=== PATIENT | female | born 1995 | race Caucasian/White ===

== ENCOUNTER 2018-07-08 10:05 | Emergency (ER) | payer MEDICAID, OTHER ==
[2018-07-08 10:06] VITALS: BMI 21.9
[2018-07-08 10:42] VITALS: BP 97/60; PULSE 55; RESP 15; TEMP 97.9; O2SAT 100
--- NOTE | 2018-07-08 10:51 | ED PDOC ---
Arrival/HPI - General Chief Complaint: Abnormal Skin Integrity Time Seen by Provider: 07/08/18 10:48 Historian: Patient - History of Present Illness Narrative History of Present Illness (Text): 07/08/18 10:48 22 y/o female, no significant pmh, nkda, c/o rt. inner thigh painful lump x 2 days. Aching pain, associated with a single lump swelling, no fever or chills, no headache or night sweat, no rash, no numbness or tingling, no diarrhea, no other medical or psychological complaints, no vaginal lesion or pain. Past Medical History - Provider Review Nursing Documentation Reviewed: Yes - Psychiatric Hx Psychophysiologic Disorder: No Hx Substance Use: No - Anesthesia Hx Anesthesia: No Family/Social History - Physician Review Nursing Documentation Reviewed: Yes Family/Social History: Unknown Family HX Smoking Status: Never Smoked Hx Alcohol Use: No Hx Substance Use: No Allergies/Home Meds Allergies/Adverse Reactions: Allergies No Known Allergies Allergy (Verified 07/08/18 10:37) Review of Systems - Review of Systems Constitutional: absent: Fatigue, Fevers Eyes: absent: Vision Changes ENT: absent: Hearing Changes Respiratory: absent: SOB, Cough Cardiovascular: absent: Chest Pain Gastrointestinal: absent: Abdominal Pain, Nausea, Vomiting Skin: Skin Lesions, Abscess. absent: Rash, Pruritis, Laceration, Ulcer, Cellulitis Neurological: absent: Headache, Dizziness Psychiatric: absent: Anxiety, Depression, Suicidal Ideation Physical Exam Vital Signs Reviewed: Yes Vital Signs Temp Pulse Resp BP Pulse Ox 07/08/18 10:37 97.9 F 55 L 15 97/60 L 100 Temperature: Afebrile Pulse: Bradycardic Respiratory Rate: Normal Appearance: Positive for: Well-Appearing, Non-Toxic, Comfortable Pain Distress: Mild Mental Status: Positive for: Alert and Oriented X 3 - Systems Exam Head: Present: Atraumatic, Normocephalic Pupils: Present: PERRL Extroacular Muscles: Present: EOMI Conjunctiva: Present: Normal Mouth: Present: Moist Mucous Membranes Neck: Present: Normal Range of Motion Respiratory/Chest: Present: Clear to Auscultation, Good Air Exchange. No: Respiratory Distress, Accessory Muscle Use Cardiovascular: Present: Regular Rate and Rhythm, Normal S1, S2. No: Murmurs Abdomen: No: Tenderness, Distention, Peritoneal Signs Back: Present: Normal Inspection Upper Extremity: Present: Normal Inspection. No: Cyanosis, Edema Lower Extremity: Present: Normal Inspection. No: Edema Neurological: Present: GCS=15, CN II-XII Intact, Speech Normal Skin: Present: Warm, Dry, Rashes (Rt. inner thigh region visible approx. 1.5cmx0.5cm diameter with mild fluctuant abscess noted, no cellulitis, no streaking, FROM without limitation, sensation intact, motor 5/5, +DPPT pulses, capillary refill< 2 seconds, neurovascular intact. ), Normal Color Psychiatric: Present: Alert, Oriented x 3, Normal Insight, Normal Concentration Medical Decision Making ED Course and Treatment: 07/08/18 10:51 -urine hcg 07/08/18 11:22 -Urine hcg is negative. Procedure: Incision & Drainage Performed by the emergency provider Indication: Abscess Location: rt. inner thigh fold Preparation: The area was prepped and draped in the usual sterile fashion and was cleansed with NS 1000cc, clean with betadine and alcohol swab. Local infiltration of Lidocaine 1% without Epi 0.5cc was used for anesthesia. Procedure: The most fluctuant portion of the abscess was incised with a #11 scalpel 0.5cm. Approximately 1 mL of purulant asbcess drainge was obtained. The abscess is too superficial for packing. A dressing was applied by me with bacitracin and gauze dressing. Post-Procedure: On exam the abscess is notably less fluctuant. The patient tolerated the procedure well, and there were no complications. 07/08/18 12:13 -Discharge home with clindamycin, motrin, keep the dressing dry and clean for 2 days and return to the ER for wound check or see your own pmd/general surgeon, return to the ER for any new or worsening signs or symptoms. - PA / BUSHEL GIRL / Resident Statement MD/DO has reviewed & agrees with the documentation as recorded. Disposition/Present on Arrival - Present on Arrival Any Indicators Present on Arrival: No History of DVT/PE: No History of Uncontrolled Diabetes: No Urinary Catheter: No History of Decub. Ulcer: No History Surgical Site Infection Following: None - Disposition Have Diagnosis and Disposition been Completed?: Yes Diagnosis: Abscess Disposition: HOME/ ROUTINE Disposition Time: 12:16 Patient Plan: Discharge Condition: IMPROVED Additional Instructions: -Discharge home with clindamycin, motrin, keep the dressing dry and clean for 2 days and return to the ER for wound check or see your own pmd/general surgeon, return to the ER for any new or worsening signs or symptoms. Prescriptions: Clindamycin [Cleocin] 300 mg PO TID #21 cap Ibuprofen [Motrin Tab] 600 mg PO QID PRN #30 tab PRN Reason: Other Referrals: Dale Francicso MD [Medical Doctor] - Follow up with primary [facility] [place] - Follow up with primary Forms: [facility] [employer] ([place]), WORK NOTE
== END 2018-07-08 12:22 | disposition home or self-care (01) ==
LOC: ED 10:05
DX: L02.415 Cutaneous abscess of right lower limb (principal)

== ENCOUNTER 2018-07-10 14:33 | Emergency (ER) | payer MEDICAID ==
[2018-07-10 14:34] VITALS: BMI 21.9
[2018-07-10 15:31] VITALS: RESP 18; TEMP 98.3
--- NOTE | 2018-07-10 15:33 | ED PDOC ---
Arrival/HPI - General Chief Complaint: Abnormal Skin Integrity Time Seen by Provider: 07/10/18 15:17 Historian: Patient - History of Present Illness Narrative History of Present Illness (Text): 07/10/18 15:29 22-year-old female presents today for wound check of the right inguinal area as well as a one-week history of right knee pain. Patient denies any trauma or injury but states she does go to the gym frequently. Patient states for the past week she has been having increasing pain in the right knee. Patient states the pain is worse with ambulation going from a sitting to standing position or walking up and down the stairs. Patient states occasionally she'll have swelling of the knee but denies any swelling at present time. Patient denies fevers or chills. Patient states she is currently on clindamycin for recent abscess. No other complaints. Past Medical History - Provider Review Nursing Documentation Reviewed: Yes - Travel History Have you recently traveled outside [place] w/in the past 3 mons?: No - Reproductive Menopause: No - Psychiatric Hx Psychophysiologic Disorder: No Hx Substance Use: No - Anesthesia Hx Anesthesia: No Family/Social History - Physician Review Nursing Documentation Reviewed: Yes Family/Social History: Unknown Family HX Smoking Status: Never Smoked Hx Alcohol Use: No Hx Substance Use: No Allergies/Home Meds Allergies/Adverse Reactions: Allergies No Known Allergies Allergy (Verified 07/08/18 10:37) Review of Systems - Review of Systems Constitutional: absent: Fatigue, Fevers Respiratory: absent: SOB, Cough Cardiovascular: absent: Chest Pain Gastrointestinal: absent: Abdominal Pain, Nausea, Vomiting Musculoskeletal: Arthralgias Skin: Abscess Neurological: absent: Headache, Dizziness Psychiatric: absent: Anxiety, Depression Physical Exam Vital Signs Reviewed: Yes Temperature: Afebrile Blood Pressure: Normal Pulse: Regular Respiratory Rate: Normal Appearance: Positive for: Well-Appearing, Non-Toxic, Comfortable Pain Distress: None Mental Status: Positive for: Alert and Oriented X 3 - Systems Exam Head: Present: Atraumatic Mouth: Present: Moist Mucous Membranes Neck: Present: Normal Range of Motion Respiratory/Chest: Present: Clear to Auscultation Cardiovascular: Present: Regular Rate and Rhythm Abdomen: No: Tenderness Lower Extremity: Present: NORMAL PULSES, Normal ROM, Tenderness (right knee; + minimal tenderness over the anterior aspect of the knee over both medial and lateral aspects. no edema, no erythema; no ecchymosis; full rom of knee. no calf tenderness. sensation and distal pulses intact. cap refill <2. ) Neurological: Present: GCS=15, Speech Normal Skin: Present: Warm, Dry, Normal Color, Other (right medial thigh; there is a small central incision without surrounding erythema; non tender.) Psychiatric: Present: Alert, Oriented x 3 Medical Decision Making ED Course and Treatment: 07/10/18 16:08 Patient is nontoxic well-appearing in no distress. Vital signs are stable. Patient presents with 2 separate complaints. Patient presenting for wound check of an abscess to the right medial thigh. Wound healing well. There was no packing in place. There is no signs of erythema. There is no tenderness. Patient also with right knee pain 1 week. X-rays of the knee: No fracture Patient given crutches for ambulation and knee immobilizer I discussed all results with patient advised to followup with the orthopedist for the next 2 days. Return if symptoms worsen persist or new symptoms develop i advised the patient that although the xrays show no fracture; there is still a possibility for ligamentous or tendon injury the patient must see the orthopedist for further evaluation. Patient was advised to continue antibiotics as prescribed for abscess and follow-up with the surgeon within the next 2 days. She was advised immediate r eturn if symptoms worsen persist or if new concerning symptoms develop Patient verbalizes understanding of discharge instructions and need for immediate followup. Impression: Abscess, knee pain Motrin one tablet every 6 hours as needed for pain continue antibiotics as prescribed. rest, ice, compression, elevation Use Knee immobilizer and crutches for ambulation follow up with the orthopedist within the next 2 days. Follow up with the surgeon within the next 2 days. Return immediately if symptoms worsen persist or if new symptoms develop: High fevers, increasing pain, increasing redness, swelling or if any other concerning symptoms develop. - RAD Interpretation Radiology Orders: 07/10/18 15:29 KNEE W PATELLA RIGHT 3 VIEW [RAD] Stat Disposition/Present on Arrival - Present on Arrival Any Indicators Present on Arrival: No History of DVT/PE: No History of Uncontrolled Diabetes: No Urinary Catheter: No History of Decub. Ulcer: No History Surgical Site Infection Following: None - Disposition Have Diagnosis and Disposition been Completed?: Yes Diagnosis: Wound check, abscess, Knee pain Disposition: HOME/ ROUTINE Disposition Time: 16:00 Patient Plan: Discharge Condition: GOOD Discharge Instructions (ExitCare): Knee Pain, Boil (DC) Additional Instructions: Motrin one tablet every 6 hours as needed for pain continue antibiotics as prescribed. rest, ice, compression, elevation Use Knee immobilizer and crutches for ambulation follow up with the orthopedist within the next 2 days. Follow up with the surgeon within the next 2 days. Return immediately if symptoms worsen persist or if new symptoms develop: High fevers, increasing pain, increasing redness, swelling or if any other concerning symptoms develop. Referrals: Gordon Fernandez DO [Staff Provider] - Follow up with primary Abhijit Owens MD [Staff Provider] - Follow up with primary Forms: [facility] ([place]), WORK NOTE
--- NOTE | 2018-07-10 16:27 | RAD ---
Date of service: 07/10/2018 PROCEDURE: Right Knee Radiographs. HISTORY: knee pain x 1 week COMPARISON: None. FINDINGS: BONES: Normal. No fracture. JOINTS: Normal. No osteoarthritis. JOINT EFFUSION: None. OTHER FINDINGS: None. IMPRESSION: Normal radiographs of the right knee.
[2018-07-10 21:58] VITALS: BP 110/66; PULSE 77; O2SAT 100
== END 2018-07-10 17:00 | disposition home or self-care (01) ==
LOC: ED 14:33
DX: Z51.89 Encounter for other specified aftercare (principal); M25.561 Pain in right knee